=== PATIENT | female | born 1950 | race Caucasian/White ===

== ENCOUNTER 2020-06-28 11:23 | Emergency (ER) | payer MEDICARE ==
[~2020-06-28] VITALS: Ht 167.6 cm; Wt 79.1 kg
[2020-06-28 11:36] VITALS: BP 141/82
== END 2020-06-28 12:52 | disposition home or self-care (01) ==
LOC: ER 11:25
DX: S86.812A Strain of other muscle(s) and tendon(s) at lower leg level, left leg, initial encounter (principal); Z98.51 Tubal ligation status; Z88.0 Allergy status to penicillin; X58.XXXA Exposure to other specified factors, initial encounter; Y93.89 Activity, other specified; Y92.89 Other specified places as the place of occurrence of the external cause; Y99.8 Other external cause status
CPT/HCPCS: 99281

== ENCOUNTER 2025-01-26 09:03 | Emergency (ER) | payer MEDICARE, MEDICAID ==
[~2025-01-26] VITALS: Ht 162.6 cm; Wt 71.4 kg
[2025-01-26 10:09] LABS: MEAN PLATELET VOLUME 8.7 FL (7.4-10.4); RED CELL DISTRIBUTION WIDTH 15.0 % (11.5-14.5)
[2025-01-26 10:20] LABS: APTT 26 SECONDS (22-32); INR 1.1 INR
--- NOTE | 2025-01-26 10:41 | RADIOLOGY REPORT ---
INDICATION: vaginal bleeding TECHNIQUE: Multiple real-time grayscale transabdominal sonographic images along with color and duplex Doppler of the uterus and ovaries were obtained. COMPARISON: None FINDINGS: The uterus measures 5.5 x 2.2 x 4.6 cm. The endometrial stripe measures 0.1 cm. Right ovary measures 2.8 x 1.8 x 1.5 cm with normal Doppler color flow Left ovary measures 2.4 x 1.1 x 1.5 cm with normal Doppler color flow IMPRESSION: 1. Grossly unremarkable pelvic ultrasound.
[2025-01-26 10:53] LABS: CREATININE 0.91 MG/DL (0.40-0.90); TOTAL CARBON DIOXIDE 26.3 MMOL/L (24-32); eCRCL 47 ML/MIN; eGFR 60 ML/MIN
[2025-01-26 11:00] LABS: LEUKOCYTE ESTERASE ,URINE NEGATIVE (Neg); NITRITES, URINE NEGATIVE (Neg); OCCULT BLOOD,URINE TRACE-INTACT (Neg)
[2025-01-26 11:01] LABS: UA COLLECTION TYPE VOIDED
[2025-01-26 11:11] LABS: SQUAMOUS EPITHELIAL CELL,UR MODERATE /LPF (FEW)
--- NOTE | 2025-01-26 12:48 | Physician Documentation ---
History of Present Illness ~ Chief Complaint: Vaginal Bleeding Stated Complaint: VAGINAL BLEEDING Time Seen by MD: 09:27 Primary Medical Doctor: [facility] Mode of Arrival: POV, Ambulatory HPI Chief Complaint: Vaginal bleeding Caveat: Dementia Independent Historians: [place] History of Present Illness: Patient is a 74-year-old woman with history of dementia who was not on any blood thinners comes in with vaginal bleeding. However upon further questioning it is unknown where the bleeding or blood has come from. [place] noted blood in the underwear. No history of melena. Stools have been dark brown. No nausea vomiting diarrhea. No abdominal pain. Review of systems: All systems were reviewed and are negative except for what is indicated in the history of present illness. Past Medical History: Unknown per niece's other than some dementia. They do not know her medications. Past Surgical History: Unknown Social History: No tobacco use, no alcohol use, no drug use Medications: Reviewed as documented Nursing Notes Allergies: Reviewed as documented in Nursing Notes Medication Reconciliation Allergies: Coded Allergies: Penicillins (Verified Allergy, Unknown, 01/26/25) Past Medical History Past Medical History: Thyroid (unspecified) Past Surgical History: tubal ligation Smoking Status: Former smoker Alcohol Use: None Drug Use: none Physical Exam Vital Signs: Temperature: 97.8, Heart Rate: 50, Respiratory Rate: 18, BP: 146/103, Pulse Oximetry: 98, Weight: 71.400 Oxygen Flow Rate: 0 Progress Results/Orders Results/Orders Orders - SB FLORES MD Ultrasound Pelvis W/Orwo Dplx (01/26/25 ) Ct Head (01/26/25 12:59) Completed Orders - SB FLORES MD PTT (01/26/25 09:27) Pt Inr (01/26/25 09:27) Ultrasound Pelvis W/Orwo Dplx (01/26/25 ) Ct Head (01/26/25 12:59) Vital Signs 01/26/25 01/26/25 01/26/25 09:18 09:38 12:13 Temp 97.8 Pulse 66 50 Resp 16 16 18 B/P (MAP) 163/82 146/103 (117) Pulse Ox 98 98 O2 Flow Rate 0 Laboratory Tests Test 01/26/25 09:58 01/26/25 10:53 White Blood Count 3.9 L Red Blood Count 4.24 Hemoglobin 12.3 Hematocrit 36.4 Mean Corpuscular Volume 85.8 Mean Corpuscular Hemoglobin 28.9 Mean Corpuscular Hemoglobin Concent 33.7 Red Cell Distribution Width 15.0 H Platelet Count 184 Mean Platelet Volume 8.7 Neutrophils (%) (Auto) 58.1 Lymphocytes (%) (Auto) 26.0 Monocytes (%) (Auto) 9.1 Eosinophils (%) (Auto) 6.0 Basophils (%) (Auto) 0.8 Neutrophils # (Auto) 2.3 Lymphocytes # (Auto) 1.0 L Monocytes # (Auto) 0.4 Eosinophils # (Auto) 0.2 Basophils # (Auto) 0.0 CBC Comment Prothrombin Time 10.8 INR International Normalized Ratio 1.1 Activated Partial Thromboplast Time 26 Coagulation Comments Sodium Level 141 Potassium Level 3.7 Chloride Level 107 Carbon Dioxide Level 26.3 Anion Gap 8 Blood Urea Nitrogen 11 Creatinine 0.91 H Estimated GFR/1.73 m2 60 BUN/Creatinine Ratio 12.1 Glucose Level 89 Calcium Level 8.6 Total Bilirubin 0.7 Aspartate Amino Transf (AST/SGOT) 20 Alanine Aminotransferase (ALT/SGPT) 15 Alkaline Phosphatase 64 Total Protein 6.1 L Albumin 3.2 L Globulin 2.9 Albumin/Globulin Ratio 1.1 Chemistry Comments Urine Specimen Description Voided Urine Color Straw Urine Clarity Slightly cloudy Urine pH 7.0 Urine Specific [place] 1.015 Urine Protein Negative Urine Glucose (UA) Negative Urine Ketones Negative Urine Occult Blood Trace-intact Urine Nitrite Negative Urine Bilirubin Negative Urine Urobilinogen 1.0 Urine Leukocyte Esterase Negative Urine RBC 0-2 Urine WBC 0-4 Urine Squamous Epithelial Cells Moderate Urine Transitional Epithelial Cells Few Urine Bacteria 4+ Urine Culture Indicated Not ind Volume Urine Centrifuged 10 ml Urine Comment Medical Decision Making Additional info obtained from: family Findings Differential diagnosis includes but is not limited to: Vaginal bleeding, GI bleeding Head CT without IV contrast, indication: Dementia with questionable headache Impression: 1. No acute intracranial abnormality. Laboratory data independent interpretation: CBC: Normal except for a mild leukocytosis of 3.9 CMP: Unremarkable Urinalysis: Unremarkable Emergency department course/medical decision-making: Patient is a 74-year-old woman who presents with blood found in her underwear. It is unknown where the blood is coming from. On physical exam no blood in the vagina or the rectum was identified. Patient's we will be discharged home. She is not anemic. Patient is stable. She has follow up with her primary care doctor within a week. Patient is stable for discharge. All the test results re viewed with the three nieces that brought her in earlier this morning. Departure Time of Disposition: 12:48 Disposition: 01 HOME / SELF CARE / HOMELESS Impression: Primary Impression: Stated complaint not identified Condition: Stable Discharge Instructions: Medical Screening Exam Additional Instructions: WATCH FOR RECTAL OR VAGINAL BLEEDING. AT THIS TIME NO SOURCE OF BLEEDING HAS BEEN FOUND. PATIENT'S LAB WORK IS UNREMARKABLE AND SHE HAS A NORMAL HEMOGLOBIN. PATIENT IS NOT ANEMIC. Education Educated: Patient Educated regarding: diagnosis, treatment, need for follow up Signature Scribe Signature: No scribe Attestation: No scribe SB FLORES MD Jan 26, 2025 12:48
--- NOTE | 2025-01-26 13:37 | RADIOLOGY REPORT ---
EXAM: CT CT HEAD INDICATION: aloc TECHNIQUE: CT of the head without intravenous contrast. Coronal and sagittal reformatted images are s ubmitted. Radiation Dose : 1. Head: CT Dose: CTDI volume is 54.3 mGy. Dose-length product is 912.9 mGy*cm The dose indicators for CT are the volume Computed Tomography (CT) Dose Index (CTDIvol) and the Dose Length Product (DLP), and are measured in units of mGy and mGy-cm, respectively. These indicators are not patient dose, but values generated from the CT scanner acquisition factors. The report includes radiation exposure data for exposures received during this examination. All CT scans at this medical facility are performed using dose modulation techniques as appropriate to a performed exam including the following: Automated exposure control was utilized; adjustment of the MA and/or KV according to patient size; and use of iterative reconstruction technique. COMPARISON: None FINDINGS: There is no evidence of acute intracranial hemorrhage, extra-axial collection, mass effect, midline s hift, herniation or hydrocephalus. The ventricles, sulci and cisterns are age appropriate. The livingston-white differentiation is intact. The visualized paranasal sinuses and mastoid air cells are clear. No depressed calvarial fracture. The surrounding soft tissues are unremarkable. IMPRESSION: 1. No acute intracranial abnormality.
[2025-01-26 14:07] VITALS: BP 151/101; PULSE 62; RESP 18; TEMP 97.8; O2SAT 97
[2025-01-26 16:47] LABS: OCCULT BLOOD STOOL NEGATIVE (Neg)
== END 2025-01-26 14:09 | disposition home or self-care (01) ==
LOC: ER 09:04
DX: N93.9 Abnormal uterine and vaginal bleeding, unspecified (principal); F03.90 Unspecified dementia, unspecified severity, without behavioral disturbance, psychotic disturbance, mood disturbance, and anxiety; Z88.0 Allergy status to penicillin; Z98.51 Tubal ligation status; Z87.891 Personal history of nicotine dependence; Z79.899 Other long term (current) drug therapy
CPT/HCPCS: 36415; 70450; 76856; 80053; 81001; 82272; 85025; 85610; 85730; 93976; 99284